=== PATIENT | male | born 1985 | race Caucasian/White ===

== ENCOUNTER → 2018-03-11 | Outpatient (CLI) | payer SELFPAY | LOC: AMB 13:38 | PROVIDERS: ATTEND Nurse Practitioner | DX: M79.672 Pain in left foot (principal); M79.671 Pain in right foot; W19.XXXA Unspecified fall, initial encounter; Y93.31 Activity, mountain climbing, rock climbing and wall climbing | CPT/HCPCS: A0998 ==